=== PATIENT | male | born 1990 | race Caucasian/White ===

== ENCOUNTER 2016-08-05 07:25 | Emergency (ER) | payer OTHER ==
[~2016-08-05] VITALS: Ht 182.9 cm; Wt 131.5 kg
[~2016-08-05 07:25] MED LIST: BENTYL10 MG PO; PERCOCET 325 MG1 TA2 PO; ZOFRAN4 M1 SL
--- NOTE | 2016-08-05 07:34 | ED GENERAL ADULT ---
History of Present Illness General Chief Complaint: Lower Extremity Problems Stated Complaint: RT LEG SWELLING AND PAIN/WARM TO THE TOUCH Source: patient Exam Limitations: no limitations Vital Signs & Intake/Output Vital Signs & Intake/Output Vital Signs Date Time Temp Pulse Resp B/P Pulse O2 O2 Flow FiO2 Ox Delivery Rate 08/05 0739 98.1 82 20 158/95 97 Room Air Room Air Allergies Coded Allergies: NO KNOWN ALLERGIES (02/23/12) Reconcile Medications Dicyclomine Hydrochloride (Bentyl) 10 MG CAP 1 TAB PO TID ABDOMINAL PAIN Meloxicam (Mobic) 15 MG TABLET 1 TAB PO DAILY PRN PAIN Ondansetron (Zofran Odt) 4 MG TAB.RAPDIS 1 TAB SL Q4-6 PRN NAUSEA OXYCODONE HCL/ACETAMINOPHEN (Percocet 5-325 MG Tablet) 325 MG/5 MG TAB 1-2 TAB PO Q4-6 PRN PRN PAIN Triage Nurses Notes Reviewed? yes Onset: Abrupt Duration: day(s): Timing: recent history HPI: 08/05/16 8:18 am This is a 25-year-old male who presents to the emergency department complaining of right knee pain and right leg swelling. According to the patient he started working out approximately 2 months ago he has lost significant weight. Vigorous exercise program. Now over the past week he developed right knee pain. He also developed swelling in the right lower extremity. There is no fever. There is no rash. There is no tick bite. The onset of symptoms were abrupt, the duration has been approximately 7 days, the severity is significant; as his symptoms required him to come to the emergency department for care. Past History Medical History Any Pertinent Medical History? see below for history Respiratory: pneumonia Musculoskeletal: disk herniation Surgical History Surgical History: MASS REMOVED FROM FOOT TONSILLECTOMY Psychosocial History Who do you live with Family Services at Home NONE What is your primary language Burkinan Family History Hx Contributory? No Review of Systems Review of Systems Constitutional: Denies: fever. EENTM: Reports: no symptoms. Respiratory: Reports: no symptoms. Cardiovascular: Reports: no symptoms. GI: Reports: no symptoms. Genitourinary: Reports: no symptoms. Musculoskeletal: Reports: see HPI. Skin: Denies: rash. Neurological/Psychological: Reports: no symptoms. Hematologic/Endocrine: Reports: no symptoms. Immunologic/Allergic: Reports: no symptoms. Physical Exam Physical Exam General Appearance: well developed/nourished, alert, awake, anxious, mild distress Head: atraumatic, normal appearance Eyes: Bilateral: normal appearance, PERRL, EOMI. Ears, Nose, Throat: normal pharynx, normal ENT inspection Neck: normal inspection, supple Respiratory: normal breath sounds, chest non-tender, no respiratory distress Cardiovascular: regular rate/rhythm Peripheral Pulses: 4+ radial (L), 4+ ulnar (L) Gastrointestinal: non-tender Back: decreased range of motion Extremities: swelling, tenderness Neurologic/Psych: no motor/sensory deficits, awake, alert, oriented x 3 Skin: intact, normal color, warm/dry Comments: Physical examination is significant for swelling to the right knee, there is a minimal effusion. There is no increased warmth. He has some decreased range of motion. There is no redness. He does have some swelling to the right leg. Minimal calf tenderness. Core Measures ACS in differential dx? No CVA/TIA Diagnosis: No Severe Sepsis Present: No Septic Shock Present: No Progress Differential Diagnoses I considered the following diagnoses in my evaluation of the patient: [Bursitis, septic arthritis, popliteal cyst, ruptured bursa cyst, calf muscle strain, DVT] Plan of Care: Orders Procedure Date/time Status US-DUPLEX VENOUS EXTREM UNI 08/05 0757 Active Initial ED EKG: none Departure Departure Disposition: STILL A PATIENT Condition: Stable Clinical Impression Primary Impression: Bursitis of knee Referrals: OWEN PRYOR MD (PCP/Family) Departure Forms: Customer Survey General Discharge Information Prescriptions: Current Visit Scripts Meloxicam (Mobic) 1 TAB PO DAILY PRN PAIN #10 TAB Comments X-ray of the right knee is negative, joint effusion Ultrasound negative for DVT He will weight-bear as tolerated take Mobic for pain and follow-up with the orthopedist this week Critical Care Note Critical Care Note Critical Care Time: non-applicable
[2016-08-05 07:39] VITALS: BP 158/95
--- NOTE | 2016-08-05 08:18 | RADIOLOGY REPORT ---
EXAMINATION: XR KNEE, RIGHT CLINICAL INFORMATION: Right knee pain. Evaluate for fracture. COMPARISON: None TECHNIQUE: Four views of the right knee. FINDINGS: Normal bony mineralization. There is no evidence of acute fracture or dislocation. Mild degenerative change with small osteophyte formation noted inferior patellofemoral compartment. There is small joint effusion. Joint spaces are preserved. IMPRESSION: No acute osseous abnormality. Small joint effusion.
--- NOTE | 2016-08-05 08:52 | ULTRASOUND REPORT ---
EXAMINATION: US TRIPLEX LOWER EXTREMITY UNILATERAL, RIGHT CLINICAL INFORMATION: Right lower extremity edema. COMPARISON: None. TECHNIQUE: Color-flow triplex imaging with spectral analysis and compression Doppler were performed on the right lower extremity. FINDINGS: Respiratory variation, normal compression and augmented flow are noted throughout the lower extremity. The visualized common femoral vein, proximal greater saphenous vein, femoral vein, profunda femoral vein, popliteal vein and mid calf peroneal and posterior tibial venous segments show no evidence of deep venous thrombosis. There is no San's cyst. IMPRESSION: Normal triplex scan without evidence of deep venous thrombosis involving the right lower extremity.
[2016-08-05] MEDS ORDERED: MOBIC15 M1 PO (09:00)
== END 2016-08-05 09:26 ==
LOC: ERH 07:25
DX: M70.51 Other bursitis of knee, right knee (principal)
CPT/HCPCS: 73560-RT

== ENCOUNTER 2017-12-06 07:47 | Emergency (ER) | payer OTHER ==
[~2017-12-06] VITALS: Ht 182.9 cm; Wt 131.5 kg
[~2017-12-06 07:47] MED LIST changes: +MOBIC15 M1 PO
--- NOTE | 2017-12-06 08:09 | ED GI/GU/ABDOMINAL COMPLAINT ---
History of Present Illness General Chief Complaint: Nausea, Vomiting, Diarrhea Stated Complaint: ABD PAIN VOMITNG XS 3 DAYS Source: patient Exam Limitations: no limitations Vital Signs & Intake/Output Vital Signs & Intake/Output Vital Signs Date Time Temp Pulse Resp B/P B/P Pulse O2 O2 Flow FiO2 Mean Ox Delivery Rate 12/06 0942 98.4 85 20 130/70 96 Room Air 12/06 0753 98.9 107 18 116/74 97 Room Air Allergies Coded Allergies: NO KNOWN ALLERGIES (02/23/12) Reconcile Medications Ondansetron (Zofran Odt) 4 MG TAB.RAPDIS 1 TAB SL TID PRN nausea vomiting Valsartan/Hydrochlorothiazide (Valsartan-Hctz 160-25 MG Tab) 160 MG-25 MG TABLET 1 TAB PO DAILY HEART (Reported) Triage Note: 27M STATES "I'M PRETTY SURE I HAVE FOOD POISONING". UNSURE OF WHAT INGESTED THAT UPSET HIS STOMACH. HAS HAD DIARRHEA X3 DAYS GOING EVERY HOUR AND VOMITING, UNABLE TO KEEP EVERYTHING DOWN INCLUDING HTN MEDS. ENDORSES EPIGASTRIC PAIN, DENIES RADIATION. DENIES FEVERS/CHILLS. DENIES BLOOD TO EMESIS OR FECES. HAS LOST 7 POUNDS IN 3 DAYS Triage Nurses Notes Reviewed? yes Onset: Gradual Duration: day(s): Timing: recent history Quality/Severity: moderate Severity Numbers: 5 Location: epigastric Radiation: no radiation HPI: 27-year-old male with history of hypertension, GERD presents to emergency department complaining of nausea, vomiting, diarrhea X 3 days. Patient states that the day before his symptoms began he was at a cookout, he only ate a hamburger and hot dog. Patient reports between 2-3 episodes of nonbilious, nonbloody vomiting each day and greater than 10 episodes of nonbloody diarrhea per day. Patient reports constant epigastric pain described as aching, worse with vomiting and bowel movements, 5/10. Patient states that this morning when he woke up he had an episode of dizziness prior to vomiting. Patient denies fevers, chills, sick contact, skin rash, dysuria, melena, hematochezia. (Marisol AGOSTO,Isabella Norris) Past History Travel History Traveled to [place] past 21 day No Medical History Any Pertinent Medical History? see below for history Neurological: NONE EENT: NONE Cardiovascular: NONE Respiratory: pneumonia Gastrointestinal: GERD Hepatic: FATTY LIVER Renal: NONE Musculoskeletal: disk herniation Psychiatric: NONE Endocrine: NONE Blood Disorders: NONE Cancer(s): NONE STOPER/Reproductive: NONE Surgical History Surgical History: MASS REMOVED FROM FOOT TONSILLECTOMY Psychosocial History Who do you live with Family Services at Home NONE What is your primary language Bulgarian Tobacco Use: Never used Family History Hx Contributory? No (Isabella Will) Review of Systems Review of Systems Constitutional: Reports: no symptoms. EENTM: Reports: no symptoms. Respiratory: Reports: no symptoms. Cardiovascular: Reports: no symptoms. GI: Reports: see HPI. Genitourinary: Reports: no symptoms. Musculoskeletal: Reports: no symptoms. Skin: Reports: no symptoms. Neurological/Psychological: Reports: see HPI. Hematologic/Endocrine: Reports: no symptoms. Immunologic/Allergic: Reports: no symptoms. All Other Systems: Reviewed and Negative (Isabella Will) Physical Exam Physical Exam General Appearance: well developed/nourished, no apparent distress, alert, awake Head: atraumatic, normal appearance Eyes: Bilateral: normal appearance. Ears, Nose, Throat, Mouth: hearing grossly normal Neck: normal inspection, supple, full range of motion Respiratory: normal breath sounds, no respiratory distress, lungs clear Cardiovascular: regular rate/rhythm Peripheral Pulses: 2+ radial (R) Gastrointestinal: normal bowel sounds, soft, no organomegaly, EPIGASTRIC TENDERNESS, LLQ TENDERNESS, NO GAURDING Back: normal inspection, normal range of motion Extremities: normal range of motion Neurologic/Psych: awake, alert, oriented x 3 Skin: intact, normal color, warm/dry Core Measures ACS in differential dx? No Sepsis Present: No Sepsis Focused Exam Completed? No (Isabella Will) Progress Differential Diagnosis: appendicitis, bowel obstruction, cholecystitis, diverticulitis, gastritis, hernia, inflamm bowel dis, pancreatitis, peptic ulcer , PUD/GERD, perforated viscous, SBO, UTI/pyelo, gastroenteritis Plan of Care: Orders Procedure Date/time Status CULTURE,STOOL 12/06 0824 Active C.DIFFICILE 12/07 823 Active URINALYSIS 12/06 0808 Complete LIPASE 12/06 0754 Complete LACTIC ACID 12/06 0754 Complete COMPREHENSIVE METABOLIC PANEL 12/06 0754 Complete CBC WITHOUT DIFFERENTIAL 12/06 075 Complete AMYLASE 12/06 0754 Complete Laboratory Tests 12/06/17 1054: Lactic Acid Cancelled 12/06/17 1021: Urinalysis LIGHT H, Urine Color YEL, Urine Clarity CLEAR, Urine pH 7.0, Ur Specific Benld <= 1.005, Urine Protein TRACE H, Urine Ketones NEG, Urine Nitrite NEG, Urine Bilirubin NEG, Urine Urobilinogen 0.2, Ur Leukocyte Esterase NEG, Ur Microscopic SEDIMENT EXAMINED, Urine RBC RARE, Urine WBC RARE, Ur Epithelial Cells RARE, Urine Bacteria FEW H, Urine Hemoglobin NEG, Urine Glucose NEG 12/06/17 0809: Anion Gap 15, Estimated GFR > 60, BUN/Creatinine Ratio 10.8, Glucose 107 H, Lactic Acid 1.4, Calcium 8.7, Total Bilirubin 0.8, AST 37, ALT 65, Alkaline Phosphatase 83, Total Protein 8.0, Albumin 4.4, Globulin 3.6, Albumin/Globulin Ratio 1.2, Amylase 56, Lipase 78, CBC w Diff NO MAN DIFF REQ, RBC 5.48, MCV 90.7 , MCH 31.0, MCHC 34.2, RDW 13.2, MPV 8.1, Gran % 75.9 H, Lymphocytes % 12.4 L, Monocytes % 9.3, Eosinophils % 2.2, Basophils % 0.2, Absolute Granulocytes 10.4 H, Absolute Lymphocytes 1.7, Absolute Monocytes 1.3 H, Absolute Eosinophils 0.3 , Absolute Basophils 0 Microbiology 12/07 827 STOOL: Clostridium difficile Toxin A & B - RES 12/07 827 STOOL: Stool Culture - RES Patient's CT scan shows no acute abnormality. Patient's labs show mild leukocytosis however no other acute findings. Patient's symptoms are likely related to gastroenteritis. A stool culture was sent to the lab. Patient currently afebrile, nontoxic appearing, no acute distress. Etiology is likely viral, we'll hold antibiotics at this time pending stool culture. The patient understands and agrees with this plan, he was given strict return precautions which she understands. The patient was discussed with Dr. Franco who agrees with the plan of care. Diagnostic Imaging: Viewed by Me: CT Scan. Discussed w/RAD: CT Scan. Radiology Impression: PATIENT: SHEBA TOMPKINS PRESENT AGE: 27 PATIENT ACCOUNT NO: [id number] : 88 LOCATION: [facility] ORDERING PHYSICIAN: Isabella AGOSTO SERVICE DATE: 12/06/17 EXAM TYPE: CAT - CT ABD & PELVIS W IV CONTRAST EXAMINATION: CT ABDOMEN AND PELVIS WITH CONTRAST CLINICAL INFORMATION: Nausea, vomiting, diarrhea. COMPARISON: None. TECHNIQUE: Contiguous axial thin section helical images of the abdomen and pelvis were performed following the administration of 95 mL of intravenous Optiray 320. The data set was reformatted in the coronal and sagittal planes and reviewed on an independent workstation. DLP: 1411 mGy-cm. FINDINGS: The visualized lung bases are clear. The visualized portions of the heart are unremarkable. The liver is of normal size and diffuse decreased attenuation without focal lesions nor intrahepatic biliary ductal dilation. A normal gallbladder is identified. There is no wall thickening or discernible pericholecystic fluid. The spleen, pancreas, adrenal glands are unremarkable. Both kidneys are of normal size and attenuation without hydronephrosis or nephrolithiasis. Following the administration of IV contrast, prompt symmetric nephrograms are displayed. There is no abdominal free fluid. There is neither mesenteric nor retroperitoneal lymphadenopathy. Normal unopacified loops of small and large bowel are identified. There is no pelvic free fluid. The urinary bladder is unremarkable. There is neither pelvic nor inguinal lymphadenopathy. Bone windows: Neither sclerotic nor lytic bone lesions are identified. There is accentuation to lower thoracic kyphosis. IMPRESSION: No evidence for acute abdominal or pelvic inflammatory or infectious processes. Hepatic steatosis. DICTATED BY: Ned Blanchard MD DATE/TIME DICTATED:12/06/17949 TIME BROKER:BJ DATE/TIME TRANSCRIBED:12/06/17949 CONFIDENTIAL, DO NOT COPY WITHOUT APPROPRIATE AUTHORIZATION. <Electronically signed in Other Vendor System> SIGNED BY: Ned Blanchard MD 12/06/1757 Initial ED EKG: none (Marisol AGOSTO,Isabella Norris) Departure Departure Disposition: HOME OR SELF CARE Condition: Stable Clinical Impression Primary Impression: Nausea vomiting and diarrhea Secondary Impressions: Abdominal pain Qualifiers: Abdominal location: epigastric Qualified Code: R10.13 - Epigastric pain Referrals: Yovany Browning MD (PCP/Family) Additional Instructions: Take Zofran as prescribed as needed for nausea and vomiting. Begin the BRAT diet (bananas, rice, applesauce, toast). Continue drinking water with mixture of electrolyte drink to help replace your electrolytes while you are having diarrhea. We will call you in 2 days if the results of your stool culture are abnormal. If you have persistent diarrhea began Imodium up to twice daily for only 2-3 days. Taking this medication for a longer duration may lead to constipation. If you have any worsening symptoms such as increasing abdominal pain, fevers, vomiting please return to the emergency department. Please note that there might be incidental findings in your evaluation that are unrelated to the current emergency department visit. Please notify your primary care doctor about this emergency department visit in order to obtain and review all of the testing performed so that these incidental findings can be monitored as needed. If you had an x-ray performed, please understand that some fractures may not be seen on the initial set of x-rays. If your symptoms persist you might need a repeat set of x-rays to check for such a fracture. If you had a laceration evaluated, please understand that foreign bodies such as glass or wood may not be visible to the naked eye or on plain x-rays. If the wound becomes red, swollen, increasingly more painful or if there is any drainage from the wound, please have it reevaluated by a physician for the possibility of a retained foreign body. If you're unable to follow up as outlined in the discharge instructions please return to the emergency department. Thank you for choosing the [facility] Emergency Department for your care. It was a pleasure to serve you today. Departure Forms: Customer Survey General Discharge Information Prescriptions: Current Visit Scripts Ondansetron (Zofran Odt) 1 TAB SL TID PRN nausea vomiting #10 TAB (Marisol AGOSTO,Isabella Norris) PA/PUMP SERVICER HELPER Co-Sign Statement Statement: ED Attending supervision documentation- [] I saw and evaluated the patient. I have also reviewed all the pertinent lab results and diagnostic results. I agree with the findings and the plan of care as documented in the PA's/PUMP SERVICER HELPER's documentation. [x] I have reviewed the ED Record and agree with the PA's/PUMP SERVICER HELPER's documentation. [] Additions or exceptions (if any) to the PAs/PUMP SERVICER HELPER's note and plan are summarized below: [] (Daniel Franco DO)
[2017-12-06 08:15] LABS: ABSOLUTE BASOPHIL COUNT 0 /CUMM (0.0-0.2); ABSOLUTE EOSINOPHIL COUNT 0.3 /CUMM (0.0-0.7); ABSOLUTE GRANULOCYTE CT 10.4 /CUMM (1.4-6.5); ABSOLUTE LYMPH COUNT 1.7 /CUMM (1.2-3.4); ABSOLUTE MONOCYTE COUNT 1.3 /CUMM (0.10-0.60); BASOPHIL % 0.2 % (0.0-2.0); EOSINOPHIL % 2.2 % (0-5); GRANULOCYTE % 75.9 % (42.2-75.2); HEMATOCRIT 49.7 % (42-52); MEAN CORPUSCULAR HGB CONC 34.2 G/DL (33.0-37.0); MEAN CORPUSCULAR VOLUME 90.7 FL (80.0-94.0); MEAN PLATELET VOLUME 8.1 FL (7.4-10.4); PLATELET COUNT 372 /CUMM (130-400); RBC DISTRIBUTION WIDTH 13.2 % (11.5-14.5); RED BLOOD CELL CT 5.48 /CUMM (4.70-6.10); WHITE BLOOD CELL COUNT 13.8 /CUMM (4.8-10.8)
[2017-12-06] MEDS ORDERED: VALSARTAN-HCTZ1 EAC2 PO (08:51)
[2017-12-06 09:42] VITALS: BP 130/70
--- NOTE | 2017-12-06 09:57 | CT SCAN REPORT ---
EXAMINATION: CT ABDOMEN AND PELVIS WITH CONTRAST CLINICAL INFORMATION: Nausea, vomiting, diarrhea. COMPARISON: None. TECHNIQUE: Contiguous axial thin section helical images of the abdomen and pelvis were performed following the administration of 95 mL of intravenous Optiray 320. The data set was reformatted in the coronal and sagittal planes and reviewed on an independent workstation. DLP: 1411 mGy-cm. FINDINGS: The visualized lung bases are clear. The visualized portions of the heart are unremarkable. The liver is of normal size and diffuse decreased attenuation without focal lesions nor intrahepatic biliary ductal dilation. A normal gallbladder is identified. There is no wall thickening or discernible pericholecystic fluid. The spleen, pancreas, adrenal glands are unremarkable. Both kidneys are of normal size and attenuation without hydronephrosis or nephrolithiasis. Following the administration of IV contrast, prompt symmetric nephrograms are displayed. There is no abdominal free fluid. There is neither mesenteric nor retroperitoneal lymphadenopathy. Normal unopacified loops of small and large bowel are identified. There is no pelvic free fluid. The urinary bladder is unremarkable. There is neither pelvic nor inguinal lymphadenopathy. Bone windows: Neither sclerotic nor lytic bone lesions are identified. There is accentuation to lower thoracic kyphosis. IMPRESSION: No evidence for acute abdominal or pelvic inflammatory or infectious processes. Hepatic steatosis.
[2017-12-06] MEDS ORDERED: ZOFRAN ODT4 M1 SL (10:35)
== END 2017-12-06 10:42 ==
LOC: ERH 07:47
PROVIDERS: Emergency Medicine
DX: R11.2 Nausea with vomiting, unspecified (principal); R19.7 Diarrhea, unspecified; R10.13 Epigastric pain
CPT/HCPCS: 74177; 81001; 87015; 87045; 87899; 87899-59; 96361; 96374; 96375; J1885; J2405